=== PATIENT | female | born 1960 | race Hispanic/Latino ===

== ENCOUNTER 2023-07-10 11:04 | Emergency (ER) | payer OTHER ==
[~2023-07-10] VITALS: Ht 175.3 cm; Wt 83.5 kg
[2023-07-10] MEDS ORDERED: KETOROLAC TROME10 MG PO (13:21)
[2023-07-10 13:45] VITALS: BP 132/80; PULSE 73; RESP 16; O2SAT 100
== END 2023-07-10 13:51 | disposition home or self-care (01) ==
LOC: ER 11:08
DX: S92.351A Displaced fracture of fifth metatarsal bone, right foot, initial encounter for closed fracture (principal); M77.31 Calcaneal spur, right foot; X50.1XXA Overexertion from prolonged static or awkward postures, initial encounter; Y93.01 Activity, walking, marching and hiking; E11.9 Type 2 diabetes mellitus without complications
CPT/HCPCS: 99283